=== PATIENT | male | born 1935 | race Caucasian/White ===

== ENCOUNTER 2016-09-29 12:35 | Inpatient (IN) | payer OTHER ==
[~2016-09-29] VITALS: Ht 180.3 cm; Wt 74.8 kg
--- NOTE | ~2016-09-29 | WRIGHTHP ---
[place], [place] PATIENT HISTORY AND PHYSICAL EXAM NAME: CHRISS OLIVARES UNIT #: [id number] ROOM: 311 DOCTOR: RIO RESTREPO MD BIRTHDATE: [birth year] DOS: 09/30/2016 CHIEF COMPLAINT: "Is it breakfast time". HISTORY OF PRESENT ILLNESS: This is an 81-year-old white male well known to me from his stay at the [facility] as well as a previous psychiatric admission to the Behavioral [facility] Care Unit; the patient is readmitted now due to significant escalation in behaviors. He is becoming increasingly more sexually inappropriate. He has been grabbing the breasts and buttocks and groins of female patients and making very elude and suggestive comments. Attempts to redirect have only led to him becoming further agitated and aggressive. He has been so labile and unpredictable, staff there feared for his safety as well as the safety of other residents. He is admitted now to rule out organic factors as well as to stabilize on medication while engaging in individual and stiles milieu activity. PAST MEDICAL HISTORY: Remarkable for COPD, CVA, hypertension, GERD, hyperlipidemia, left hip fracture, peripheral vascular disease, a history of urinary retention and Alzheimer dementia. MENTAL STATUS: The patient is alert and oriented to person, possibly place, but not time. Mood does seem to be somewhat labile. Affect is inappropriate. He does processes slowly. There are no auditory or visual hallucinations noted. No paranoia. Short term memory is exceptionally poor. DIAGNOSIS: Major depression, recurrent with psychotic features and impulse control disorder. PLAN: I have already started him on Depakote as well as Celexa. My hope is that the Celexa will decrease his sexual libido as well as decreasing his impulsivity; the Depakote should also decrease his impulsivity and stabilize his mood. We will engage in individual and stiles milieu activity with the ultimate plan to return to the [facility] when stable. [place], [place] PATIENT HISTORY AND PHYSICAL EXAM NAME: CHRISS OLIVARES Abdifatah UNIT #: [id number] ROOM: 311 DOCTOR: RIO RESTREPO MD BIRTHDATE: [birth year] RIO RESTREPO MD CM:HISPHYS:PATIENT HISTORY AND PHYSICAL EXAMINATION [id number] RIO RESTREPO MD 09/30/16 0748 interface
--- NOTE | ~2016-09-29 | PR ---
[place], [place] PROGRESS NOTE NAME[id number] UNIT #: [id number] ROOM: 311 DOCTOR: RIO RESTREPO MD BIRTHDATE: [birth year] DOS: 10/07/2016 CHIEF COMPLAINT: "Morning." SUMMARY OF THE VISIT: The patient was interviewed in the dining area, where he sat in his wheelchair at the dining table, waiting for breakfast. As I approached, he did maintain eye contact and did speak to me. He was spontaneous as I approached and actually wished me good morning before I had a chance to talk to him. He was short and simple with most of his comments. He denied any issues and reporting that he slept well. He does say he is anxious to return back to the [facility]. MENTAL STATUS EXAMINATION: This morning, he is alert and oriented to self, place, but not necessarily time. Mood does seem to be trending towards euthymia. Affect is more appropriate. There are no symptoms of meera or hypomania. There are no overt auditory or visual hallucinations noted. Short term memory is poor. Otherwise, he is intact. PLAN: I will maintain his current psychotropic regimen. At this point, I will recheck his valproic acid level in the a.m. tomorrow given the fact that the level has dipped slightly, and I want to make certain that he remains in the range of 60-80. We will engage him in individual and stiles milieu activity, returning then to the [facility] when stable. RIO RESTREPO MD CM:PNTRANS [phone] RIO RESTREPO MD 10/08/16 0121 interface
--- NOTE | ~2016-09-29 | PR ---
[place], [place] PROGRESS NOTE NAME: CHRISS OLIVARES UNIT #: [id number] ROOM: 311 DOCTOR: RIO RESTREPO MD BIRTHDATE: [birth year] DOS: 10/06/2016 CHIEF COMPLAINT: "Good morning, I guess I will be ready to go back to the [place]." SUMMARY OF THE VISIT: The patient was interviewed in the dining area where he engaged readily in conversation. He was fairly bright and pleasant. When asked how he was doing, he nodded in approval asked about being ready to go back to the [facility] he made a frown, but then refused to elaborate stating that I guess it is okay there. Nurses report he has episodes of still being sexually inappropriate, but they are becoming less frequent and less intense, he does seem to be tolerating the current medication regimen well without any apparent side effects. MENTAL STATUS: He is alert and oriented to person, place, not necessarily time. Mood does seem to be trending towards euthymia. Affect is more appropriate. There is no symptom suggestive of hypomania or meera. There are no overt auditory or visual hallucinations. No delusions or paranoia are present. Memory is fully intact. PLAN: I will change his Depakote to Depakote Sprinkles for ease of administration. His last valproic acid level actually went down to 53.5, so I will need to monitor this accordingly. Continue to engage in individual and stiles milieu activity with the plan to return to the [facility] when psychiatrically stable. RIO RESTREPO MD CM:PNTRANS [id number] RIO RESTREPO MD 10/06/16 1150 interface
--- NOTE | ~2016-09-29 | PR ---
[place], [place] PROGRESS NOTE NAME: [id number] UNIT #: [id number] ROOM: 311 DOCTOR: RIO RESTREPO MD BIRTHDATE: [birth year] DOS: 10/05/2016 CHIEF COMPLAINT: "Morning." SUMMARY OF THE VISIT: The patient was interviewed in the dining area where he sat in his wheelchair, eating his breakfast. He engaged in very brief conversation, but was not very conversant. Nurses' report, he continues to be sexually inappropriate and he was requesting that he get help washing in his groping area. He specifically asked for a female aide to do the washing. He continues to also make vulgar or profane comments to the female staff. MENTAL STATUS: He is alert and oriented to person, possibly place, but not time. Mood is still labile. Affect is still inappropriate. There are no auditory or visual hallucinations. No delusions, no paranoia. Short term memory is very poor. PLAN: His valproic acid level obtained today was low therapeutic at 53.5, I will increase the Depakote to 500 mg 3 times a day to decrease some of his impulsivity. I will also increase his Provera from 10 mg twice a day to 10 mg 3 times a day to further decrease his libido. We will engage in individual and stiles milieu activity, returning to the [facility] when stable. RIO RESTREPO MD CM:PNTRANS [phone] RIO RESTREPO MD 10/05/162152 interface
--- NOTE | ~2016-09-29 | PR ---
[place], [place] PROGRESS NOTE NAME: [id number] UNIT #: [id number] ROOM: 311 DOCTOR: RIO RESTREPO MD BIRTHDATE: [birth year] DOS: 10/04/2016 INTERVAL NOTE CHIEF COMPLAINT: "Morning." SUMMARY OF THE VISIT: The patient was interviewed as he sat in the dining area in his wheelchair. At first he stared off into space and did not even make eye contact with me, but as I persisted, he did at least amount the word morning, but was not very forthcoming with much information. On a positive note, the patient did seem to have a better evening and night last night without the sexual inappropriate behavior. There is no agitation or aggression noted as well. MENTAL STATUS: He is alert and oriented to person, possibly place, but not time. Mood does seem to be trending towards euthymia. Affect is more appropriate. There are no symptoms of hypomania or meera. There are no overt auditory or visual hallucinations, delusions or paranoia. Short-term memory is poor. Otherwise, he is intact. PLAN: At the present time, I will maintain his current psychotropic regimen. Continue to engage in individual and stiles milieu activity with the ultimate plan to return back to the [facility] when stable. RIO RESTREPO MD CM:PNTRANS [phone] RIO RESTREPO MD 10/05/16 0204 interface
--- NOTE | ~2016-09-29 | EKG ---
[place], [place] ELECTROCARDIOGRAM REPORT NAME: CHRISS OLIVARES UNIT #: [id number] ROOM: 311 DOCTOR: DOMINIC MISHRA MD BIRTHDATE: [birth year] DOS: 09/29/2016 TIME: 13:00. Sinus bradycardia with rate of 50. Left anterior fascicular block, nonspecific T-wave flattening. Abnormal EKG. DOMINIC MISHRA MD CM:EKGRPT:ELECTROCARDIOGRAM REPORT [id number] DOMINIC MISHRA MD
--- NOTE | ~2016-09-29 | CON ---
[place], [place] REPORT OF CONSULTATION NAME: CHRISS [facility]IVARES [id number] UNIT #: [id number] ROOM: 311 DOCTOR: KATHARINA COSTA ED.D (KATIE) BIRTHDATE: [birth year] DOS: 10/01/2016 HISTORY OF PRESENT ILLNESS: The patient is an 81-year-old male referred by Dr. Olivares for competency evaluation. At the present time, this patient is on the [facility] at [facility]. He is and had 5 children. Apparently, one is . He has recently been living at the [facility] in [place], [place]. MEDICAL HISTORY: Pertinent for Alzheimer's disease, COPD, and history of CVA. MEDICATIONS: Include calcium, Depakote, Celexa, atorvastatin, Namenda, and Geodon. He does not have any significant substance abuse issues that we are aware of. This patient was awake, alert, and oriented only to person. He had no idea of his age and he had no idea where he was. He could not name the president [employer] or communicating any significant manner. He is clearly not competent to make informed healthcare decisions. In my opinion, guardianship should be established for this patient to make informed decisions on his behalf. DIAGNOSES: Major neurocognitive disorder -- Alzheimer disease. RECOMMENDATIONS: A guardianship should be established. Thank you very much for this consult. KATHARINA COSTA ED.D CM:CONSTR:REPORT OF CONSULTATION 1603 10/02/16 1256 interface RIO OLIVARES MD
--- NOTE | ~2016-09-29 | PR ---
[place], [place] PROGRESS NOTE NAME: [facility]ISS [facility]ES [id number] UNIT #: [id number] ROOM: 311 DOCTOR: STERLING MEDEL BIRTHDATE: [birth year] DOS: 10/08/2016 CHIEF COMPLAINT: "Good morning." SUMMARY OF VISIT: The patient was assessed in his room where he was having his vital signs checked. He engaged readily in conversation, had a good eye contact, a little inappropriate as far as commenting on my looks and stated that we had slept together last night. MENTAL STATUS: Alert and oriented to person. I do not know about place or time. Mood trending towards euthymic. Affect is appropriate. His conversations can be a little inappropriate. There is no meera or hypomania. There are no overt signs of auditory or visual hallucinations, poor memory. PLAN: His valproic acid level was in the therapeutic range 71.[address] Olivares's note of yesterday. His goal is to maintain him in the 60-80 range, so we are right in the center there. The goal is eventually getting back to [place] once stable. He still can be sexually preoccupied. I want to see how he does over the next 24 hours. We have seen a significant improvement behavior headley. I encouraged him to think before he speaks, lets see if this has any influence on him and then we can kind of go from there. MELO MEDEL CNP CM:PNTRANS [phone] STERLING MEDEL 10/08/16 231 interface
--- NOTE | ~2016-09-29 | PR ---
[place], [place] PROGRESS NOTE NAME[id number] UNIT #: [id number] ROOM: 311 DOCTOR: RIO RESTREPO MD BIRTHDATE: [birth year] DOS: 10/03/2016 CHIEF COMPLAINT: "I'm good, thank you for asking." SUMMARY OF THE VISIT: The patient was interviewed in the dining room where he sat eating his breakfast. He stopped and actually engaged in conversation today, this was one of his most engaging times that he has been here and actually he answered questions that were asked about him. Staff reports that he had a better day yesterday with less sexually inappropriate behavior and less acting out. He seems to be tolerating the current medication regimen well without any apparent side effects. MENTAL STATUS: He is alert and oriented with time gaps. Mood does seem to be more euthymic. Affect more appropriate. There is no symptom suggestive of meera or hypomania. There are no overt auditory or visual hallucinations. No delusions, no paranoia. Short term memory is poor and he does process slowly. PLAN: His valproic acid level was therapeutic at 67.9. I will go ahead and continue his current psychotropic regimen, engage in individual and stiles milieu activity, continue to monitor and support with the ultimate plan to return to the [facility] when psychiatrically stable. RIO RESTREPO MD CM:PNTRANS [phone] RIO RESTREPO MD 10/04/16 0005 interface
--- NOTE | ~2016-09-29 | PR ---
[place], [place] PROGRESS NOTE NAME: CHRISS OLIVARES [facility] [id number] UNIT #: [id number] ROOM: 311 DOCTOR: RIO RESTREPO MD BIRTHDATE: [birth year] DOS: 10/02/2016 INTERVAL NOTE CHIEF COMPLAINT: "Morning." SUMMARY OF THE VISIT: The patient was interviewed in the dining area. He had about half of his breakfast eaten. He engaged only in brief conversation, which is an improvement from yesterday, but the extent of his conversation seemed very limited. Nurses report a very poor evening last night, he became sexually aggressive on multiple occasions sticking his hand up the blouse of one of the [employer] [facility] techs grabbing her breast and then when redirection was attempted, he reported that he liked it and loved it and wanted more of it. Attempts to redirect him verbally were met with him escalating further and making physical threats. He continued throughout much of the evening, making gross sexual comments to female staff. MENTAL STATUS: He is alert and oriented to person, possibly place, but not time. Mood does seem to be somewhat labile. Affect at times is inappropriate. There are no gross delusions or paranoia noted. Short term memory is exceedingly poor. PLAN: Given these extent of his sexual acting out and the fact that he has repeatedly become physical, I will discontinue the Nuedexta as it does not seem to be effective at controlling this behavior and start him on Provera 10 mg b.i.d. Given the fact that this has been a pervasive problem that has spanned several psych stays as well as [facility] behavior [facility] and he is putting female residents and staff at risk for harm. I do feel that the Provera is justified at this point. We will monitor, engage in individual and stiles milieu activity. Returning back to the [facility] when stable. RIO RESTREPO MD CM:PNTRANS [id number] RIO RESTREPO MD 10/03/16 0044 interface
--- NOTE | ~2016-09-29 | DS ---
[place], [place] DISCHARGE SUMMARY NAME: CHRISS OLIVARES [facility] #: [id number] UNIT #: [id number] ROOM: 311 DOCTOR: STERLING MEDEL BIRTHDATE: [birth year] DOS: 10/09/2016 HISTORY OF PRESENT ILLNESS: This is an 81-year-old male known to us from his stay at [facility] as well as other psychiatric admissions to the [facility]. The patient was readmitted for significant escalation in behavior. He is becoming increasingly more sexually inappropriate, grabbing the breasts and buttocks and groins of female patients and making very lewd and suggestive comments. Attempts to redirect him led him to becoming further agitated and aggressive. He has been so labile and unpredictable that the staff feared for his safety as well as the safety of other residents. He was admitted to rule out organic factors and stabilize on medications. PAST MEDICAL HISTORY: Remarkable for COPD, CVA, hypertension, GERD, hyperlipidemia, hip fracture, peripheral vascular disease, urinary retention, and Alzheimer dementia. DIAGNOSES: AXIS I: Alzheimer dementia, major depression, recurrent with psychotic features, impulse control disorder. HOSPITAL COURSE: The patient was already started on Depakote and Celexa. Depakote was to help with the impulsivity, the Celexa to help decrease his libido. He eventually needed to be put on Provera, basically estrogen based to curb the libido as well. He was found to be vitamin D deficient and then he was also on Namenda was added for his dementia. MENTAL STATUS: Alert and oriented to person, place, I do not think time. Mood euthymic. Affect was appropriate. He still can sometimes say inappropriate things, not overtly sexual but implying, but he is more redirectable. PLAN: The patient is being discharged on Depakote 500 mg t.i.d. His valproic acid level was 71.1. His goal is to maintain this in the range of 60-80. He will need to have valproic acid level checked every 3 months at the facility as long he is on Depakote. He is on Provera 10 mg t.i.d. and Celexa 20 mg every day to help decrease his libido. He is on vitamin D 50,000 international Units q. week for vitamin D deficiency and Namenda 10 mg b.i.d. The patient is being discharged back to [facility] in stable condition where Dr. Olivares, myself or the other TRANSITION ASSISTANT will round on him. [place], [place] DISCHARGE SUMMARY NAME: CHRISS OLIVARES UNIT #: [id number] ROOM: [facility] DOCTOR: STERLING MEDEL BIRTHDATE: [birth year] MELO MEDEL CNP CM:DISCHARG [phone] STERLING MEDEL 10/09/16 1618 interface
--- NOTE | ~2016-09-29 | PR ---
[place], [place] PROGRESS NOTE NAME: [facility]ES [id number] UNIT #: [id number] ROOM: 311 DOCTOR: RIO RESTREPO MD BIRTHDATE: [birth year] DOS: 10/01/2016 INTERVAL NOTE CHIEF COMPLAINT: The patient was nonverbal. SUMMARY OF THE VISIT: The patient was attempted to be interviewed as he sat in the dining area. He was interacting with the Physical Therapy Department, the gentleman who was attempting to engage him found him to be nonverbal as well. He also noted that the patient was not even following simple commands with him. As I attempted to engage the patient in conversation, he did not even make eye contact, but stared straight ahead. I even did move my face directly in front of him and he did not even attempt to make eye contact with me. Later, I sent the nurse practitioner in to talk to him and utmost, she was able to get a yep or no from him, but no spontaneity and no elaboration of his thoughts. Nurses report similar behavior this morning and link it to the fact that he did awaken early and was escorted into the dining area earlier than he wanted to be. They report that last evening he became sexually inappropriate with a female staff, making lewd sexual comments to her. MENTAL STATUS: My mental status is limited due to his lack of participation. PLAN: I will go ahead and check a valproic acid level in the a.m. to ensure that it is therapeutic. Routine screening examinations show him to have a low vitamin D level at 28.2. So I will start vitamin D 50,000 international units weekly. Additionally, his folic acid level is low at 4.44. I will start folic acid 1 mg daily. We will continue to attempt to engage him in individual and stiles milieu activity with the ultimate plan to return to the [facility] when psychiatrically stable. RIO RESTREPO MD CM:PNTRANS 0945 RIO RESTREPO MD 10/01/16 0946 interface
[~2016-09-29 12:35] MED LIST: ALEVE220 MG PO; ASPIR-LOW81 MG PO; AVANDIA8 MG PO; CILOSTAZOL100 MG PO; CITALOPRAM HYDR20 MG PO; CRESTOR20 MG PO; FLOMAX0.4 MG PO; GLYBURIDE5 MG PO; LIPITOR40 MG PO; MAG-OX 400400 MG PO; MEDROL DOSEPAK4 MG PO; METFORMIN1000 MG PO; MIRTAZAPINE15 MG PO; NAMENDA XR28 M1 PO; NAMENDA10 MG PO; PENTOXIFYLLINE400 MG PO; REMERON15 M2 PO; RIVASTIGMINE T4.5 M1 PO; RIVASTIGMINE TAR3 M1 PO; SYNTHROID0.15 MG PO; TRAMADOL HCL50 MG PO; TRENTAL400 MG PO; TYLENOL325 M1 PO; VICODIN 5/500 505 MG PO; Vicodin 5/500 505 MG PO
[2016-09-29 12:58] LABS: BASO # 0.1 10*3/uL (0.0-0.1); BASO % 0.9 % (0.0-1.0); EOS # 0.4 10*3/uL (0.0-0.4); EOS % 3.8 % (1.0-4.0); HEMATOCRIT 43.9 % (42.0-52.0); IG # 0.1 10*3/uL (0.0-0.1); LYMPH # 2.1 10*3/uL (1.3-4.4); LYMPH % 21.8 % (27.0-41.0); MEAN CELL VOLUME 100.5 fl (80.0-94.0); MEAN CORPUSCULAR HGB CONC 31.9 g/dl (33.0-37.0); MEAN PLATELET VOLUME 10.4 fl (9.6-12.3); MONO % 10.2 % (3.0-9.0); NEUT % 62.7 % (47.0-73.0); PLATELET COUNT AUTOMATED 204 10*3/uL (130-400); RED BLOOD COUNT 4.37 10*6/uL (4.50-5.90); RED CELL DISTRI WIDTH 13.6 % (0-14.5); WHITE BLOOD COUNT 9.5 10*3/uL (4.8-10.8)
[2016-09-29 13:04] VITALS: BP 141/72
[2016-09-29 13:12] LABS: ALKALINE PHOSPHATASE 120 U/L (45-117); BILIRUBIN, TOTAL 0.5 mg/dl (0.2-1.0); BUN 20 mg/dl (7-24); CARBON DIOXIDE 30 mmol/L (21-32); CHLORIDE 104 mmol/L (98-107); EST GLOM FILT AFRICAN AMERICAN > 60 ml/min; GLUCOSE 83 mg/dL (65-99); POTASSIUM 4.1 mmol/L (3.5-5.1); SGOT/AST 17 IU/L (3-35); SGPT/ALT 31 U/L (12-78); SODIUM 142 mmol/L (136-145); TOTAL PROTEIN 6.8 gm/dL (6.4-8.2)
[2016-09-29 14:47] VITALS: BP 151/82
[2016-09-29 15:11] VITALS: BP 162/58
[2016-09-29] MEDS ORDERED: NAMENDA-28 PO (15:54)
[2016-09-29] MEDS ORDERED: REMERON15 M2 PO (15:54)
[2016-09-29] MEDS ORDERED: ATIVAN0.5 MG PO (15:55)
[2016-09-29] MEDS ORDERED: NUED1CAP PO (15:56)
[2016-09-29 18:57] LABS: BILIRUBIN NEGATIVE (NEGATIVE); BLOOD TRACE-INTACT (NEGATIVE); CLARITY CLOUDY (CLEAR); COLOR YELLOW (YELLOW); GLUCOSE NEGATIVE (NEGATIVE); KETONE NEGATIVE (NEGATIVE); LEUKO ESTERASE 3+ (NEGATIVE); NITRITE NEGATIVE (NEGATIVE); PROTEIN TRACE (NEGATIVE)
[2016-09-29 19:06] LABS: WBC 31-40 wbc/hpf (0-5)
[2016-09-29 19:07] LABS: BACTERIA 3+; URINE REFLEX COMMENT YES (NO)
[2016-09-29 19:14] LABS: URINE AMPHETAMINES < 1000 (1000ng/ml); URINE BARBITURATES < 200 (200ng/ml); URINE COCAINE < 300 (300ng/ml)
[2016-09-29 19:50] VITALS: BP 143/69
[2016-09-29 20:00] VITALS: BP 143/69
[2016-09-30 08:00] VITALS: BP 135/61
[2016-09-30 08:22] LABS: FOLIC ACID 4.44 ng/mL (>5.38); VITAMIN D, 25-HYDROXY 28.2 ng/mL (30-100)
[2016-09-30 08:51] VITALS: BP 120/58
[2016-09-30 20:00] VITALS: BP 141/55
[2016-10-01 08:10] VITALS: BP 110/52
[2016-10-01 19:36] VITALS: BP 137/48
[2016-10-02 07:22] VITALS: BP 137/76
[2016-10-02 20:01] VITALS: BP 142/62
[2016-10-03 07:57] VITALS: BP 122/53
[2016-10-03 19:23] VITALS: BP 144/51
[2016-10-04 07:50] VITALS: BP 138/59
[2016-10-04 19:40] VITALS: BP 120/94
[2016-10-05 07:50] VITALS: BP 118/47
[2016-10-05 08:03] VITALS: BP 118/47
[2016-10-05 19:36] VITALS: BP 149/28
[2016-10-06 07:33] VITALS: BP 140/62
[2016-10-06 20:56] VITALS: BP 117/58
[2016-10-07 07:48] VITALS: BP 111/78
[2016-10-07 20:00] VITALS: BP 125/56
[2016-10-08 07:37] VITALS: BP 120/64
[2016-10-08 19:42] VITALS: BP 127/66
[2016-10-09] MEDS ORDERED: NATURE'S BLEND F1 MG PO (07:45)
[2016-10-09] MEDS ORDERED: VITAMIN D31000 IU PO (07:45)
[2016-10-09] MEDS ORDERED: DIVALPROEX SOD125 M1 PO (07:49)
[2016-10-09] MEDS ORDERED: MEMANTINE HCL10 MG PO (07:49)
[2016-10-09] MEDS ORDERED: MEDROXYPROGESTE10 M1 PO (07:49)
[2016-10-09] MEDS ORDERED: CITALOPRAM HYDR20 MG PO (07:49)
[2016-10-09] MEDS ORDERED: VITAMIN D50000 I3 PO (07:49)
[2016-10-09 08:07] VITALS: BP 120/66
== END 2016-10-09 10:15 | DRG 885 ==
LOC: ED 12:35 → 3N 13:31
PROVIDERS: Emergency Medicine; Psychiatry & Neurology Psychiatry
DX: F33.3 Major depressive disorder, recurrent, severe with psychotic symptoms (principal); G30.9 Alzheimer's disease, unspecified; J44.9 Chronic obstructive pulmonary disease, unspecified; F02.80 Dementia in other diseases classified elsewhere, unspecified severity, without behavioral disturbance, psychotic disturbance, mood disturbance, and anxiety; F01.50 Vascular dementia, unspecified severity, without behavioral disturbance, psychotic disturbance, mood disturbance, and anxiety; I73.9 Peripheral vascular disease, unspecified; E78.5 Hyperlipidemia, unspecified; I10 Essential (primary) hypertension; K21.9 Gastro-esophageal reflux disease without esophagitis; F63.9 Impulse disorder, unspecified; E55.9 Vitamin D deficiency, unspecified; Z86.73 Personal history of transient ischemic attack (TIA), and cerebral infarction without residual deficits; Z87.81 Personal history of (healed) traumatic fracture; Z91.030 Bee allergy status; Z88.8 Allergy status to other drugs, medicaments and biological substances; Z80.9 Family history of malignant neoplasm, unspecified; Z79.899 Other long term (current) drug therapy